=== PATIENT | female | born 1980 | race Caucasian/White ===

== ENCOUNTER 2018-12-07 07:44 | Day surgery (SDC) | payer BC ==
[~2018-12-07 07:44] MED LIST: DESFLURANE 15 MIN; PROPOFOL 200 MG INJ
[2018-12-07] MEDS ORDERED: DIPHENHYDRAMINE 50 MG INJ IV (11:00)
[2018-12-07] MEDS ORDERED: MEPERIDINE 25 MG INJ IV (11:00)
[2018-12-07] MEDS ORDERED: ONDANSETRON 4 MG INJ IV (11:00)
[2018-12-07] MEDS ORDERED: ALBUTEROL 0.083% (NEB) 2.5 MG/3 ML AMP HHN (11:00)
[2018-12-07] MEDS ORDERED: HYDROmorphONE 1 MG/5 ML IV SYRINGE IV ×2 (11:00)
[2018-12-07] MEDS ORDERED: METOCLOPRAMIDE 10 MG INJ IV (11:00)
[2018-12-07] MEDS ORDERED: FENTAnyl 50 MCG/ML VIAL (11:02)
[2018-12-07] MEDS ORDERED: SUCCINYLCHOLINE CHLORIDE 100 MG/5 ML SYG IV (11:08)
[2018-12-07] MEDS ORDERED: PROPOFOL 20 ML (11:08)
[2018-12-07] MEDS ORDERED: ACETAMINOPHEN 325 MG TAB PO (11:30)
[2018-12-07] MEDS: FENTAnyl 50 MCG/ML VIAL IV ×3 (11:30→11:46)
[2018-12-07] MEDS: HYDROmorphONE 1 MG/5 ML IV SYRINGE IV (11:57)
== END 2018-12-07 13:13 | disposition home or self-care (01) ==
LOC: SDS 07:44
DX: D25.0 Submucous leiomyoma of uterus (principal); N92.1 Excessive and frequent menstruation with irregular cycle; E66.9 Obesity, unspecified
CPT/HCPCS: 58558; 84702; 84703; 86850; 86900; 86901; 88305